=== PATIENT | male | born 1975 | race Two or more races ===

== ENCOUNTER 2019-11-12 16:32 | Emergency (ER) | payer BC ==
[~2019-11-12] VITALS: Ht 167.6 cm; Wt 76.6 kg
[2019-11-12 16:50] VITALS: BP 123/91
--- NOTE | 2019-11-12 17:40 | NUR ---
Patient given discharge instructions and they have confirmed that they understand the instructions. Patient ambulatory with steady gait.
== END 2019-11-12 17:48 | disposition home or self-care (01) ==
LOC: ED 17:40
DX: S90.465A Insect bite (nonvenomous), left lesser toe(s), initial encounter (principal); W57.XXXA Bitten or stung by nonvenomous insect and other nonvenomous arthropods, initial encounter; Y93.89 Activity, other specified; Y92.89 Other specified places as the place of occurrence of the external cause; Y99.8 Other external cause status
CPT/HCPCS: 99283

== ENCOUNTER 2020-03-27 14:59 | Emergency (ER) | payer BC ==
[~2020-03-27] VITALS: Ht 170.2 cm; Wt 74.2 kg
[2020-03-27] MEDS ORDERED: DEXAMETHASONE 4 MG TABLET PO STA (15:43)
[2020-03-27] MEDS ORDERED: IBUPROFEN 800 MG TABLET PO STA (15:43)
[2020-03-27] MEDS ORDERED: DEXAMETHASONE 4 MG TABLET ONE (15:47)
[2020-03-27] MEDS ORDERED: IBUPROFEN 800 MG TABLET ONE (15:47)
[2020-03-27 16:58] VITALS: BP 120/76
== END 2020-03-27 16:59 | disposition home or self-care (01) ==
LOC: ED 16:53
DX: U07.1 COVID-19 (principal); J02.8 Acute pharyngitis due to other specified organisms; B97.89 Other viral agents as the cause of diseases classified elsewhere
CPT/HCPCS: 87081; 87635; 87880; 99283